=== PATIENT | male | born 1955 | race Two or more races ===

== ENCOUNTER 2017-03-18 13:06 | Emergency (ER) | payer SELFPAY ==
[2017-03-18 13:13] VITALS: BP 130/82; BMI 22.3
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
[2017-03-18] MEDS ORDERED: TORADOL 60 MG VIAL IM ONE (14:34)
[2017-03-18] MEDS ORDERED: TORADOL 60 MG VIAL ONE (14:35)
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
--- NOTE | 2017-03-18 15:35 | CT ---
Chest CT without contrast: Indication: Rib fracture. Comparison: Chest radiograph dated June 25, 2016. Technique: Helical noncontrast CT imaging of the chest was performed with multiplanar reformations. Findings: There is a small to moderate-sized right-sided pneumothorax. No significant shift of the m ediastinal contents is identified. No pleural effusion or left-sided pneumothorax is identified. Apa rt from atelectasis, the lungs are clear with, and the central airways are patent. There is a a right-sided central venous catheter, terminating within the right atrium. There is mild coronary artery atherosclerosis, without acute vascular abnormality identified. The heart is unrema rkable without pericardial effusion. No enlarged thoracic lymph nodes are identified. There is a sma ll air-fluid level within the inferior thoracic esophagus. The imaged superior abdominal contents are unremarkable. There is a.m. Mild to moderate compression deformity of the T12 vertebral body. Anteriorly, the 1st through 5th ribs are fractured with mild di splacement a nondisplaced fracture of the anterior 6th rib may be present as well. Impression: 1. Small to moderate size right pneumothorax, without evidence of tension physiology. 2. Mildly displaced right anterior 1st through 5th, as well as possible nondisplaced 6th, rib fractu res. 3. Mild to moderate T12 vertebral body compression deformity, chronicity unknown. Reported By:
[2017-03-18 16:08] LABS: BASOPHILS # (AUTO) 0.1 X10^3/uL (0.0-0.1); BASOPHILS % (AUTO) 0.5 % (0.2-1.0); EOSINOPHILS # (AUTO) 0.1 x10^3/uL (0.0-0.2); EOSINOPHILS % (AUTO) 0.6 % (0.9-2.9); HEMATOCRIT 35.2 % (42.0-54.0); HEMOGLOBIN 11.5 g/dL (13.5-18.0); LYMPHOCYTES % (AUTO) 5.2 % (21.0-51.0); MEAN CORPUSCULAR HEMOGLOBIN 29.1 pg (27.0-34.0); MEAN CORPUSCULAR HGB CONC 32.6 g/dL (33.0-35.0); MEAN CORPUSCULAR VOLUME 89.2 fL (80.0-100.0); MEAN PLATELET VOLUME 7.7 fL (7.4-11.0); MONOCYTES # (AUTO) 0.8 x10^3/uL (0.3-0.8); MONOCYTES % (AUTO) 4.1 % (0.0-13.0); NEUTROPHILS # (AUTO) 17.4 x10^3/uL (2.2-4.8); NEUTROPHILS % (AUTO) 89.6 % (42.0-75.0); PLATELET COUNT 238 X10^3/uL (150.0-450.0); RED BLOOD COUNT 3.94 X10^6/uL (4.7-6.0); RED CELL DISTRIBUTION WIDTH 14.9 % (11.6-16.5); WHITE BLOOD COUNT 19.4 X10^3/uL (3.6-10.0)
[2017-03-18 16:20] LABS: ALANINE AMINOTRANSFERASE 26 Units/L (12-78); ALKALINE PHOSPHATASE 80 Units/L (46-116); ASPARTATE AMINO TRANSFERASE 37 Units/L (15-37); BLOOD UREA NITROGEN 64 mg/dL (7-18); CALCIUM 8.9 mg/dL (8.5-10.1); CARBON DIOXIDE 26.8 mmol/L (21-32); CHLORIDE 103 mmol/L (98-107); COR NA(FOR HYPERGLY) 143 mmol/L (136-145); CREATININE 8.84 mg/dL (0.70-1.30); GLUCOSE 123 mg/dL (65-99); SODIUM 142 mmol/L (136-145); TOTAL PROTEIN 7.5 g/dL (6.4-8.2); eGFR BLACK RACES 8 (>60); eGFR NON BLACK RACES 7 (>60)
== END 2017-03-18 16:41 | disposition short-term general hospital (02) ==
LOC: ER 13:15
DX: S22.080A Wedge compression fracture of T11-T12 vertebra, initial encounter for closed fracture (principal); S42.001A Fracture of unspecified part of right clavicle, initial encounter for closed fracture; W19.XXXA Unspecified fall, initial encounter; Y92.22 Religious institution as the place of occurrence of the external cause
CPT/HCPCS: 36415; 70450; 71250; 72125; 73030; 73100; 80053; 85025; 96365; 96372; 99284; 99285; A4222; J1885

== ENCOUNTER 2017-09-20 07:26 | Day surgery (SDC) | payer MEDICAID, OTHER ==
[2017-09-20] MEDS ORDERED: D5 LR 1000 ML 1,000 ML IV ONE (07:31)
[2017-09-20] MEDS ORDERED: NS 500 ML IV 500 ML IV ONE (09:26)
[2017-09-20] MEDS ORDERED: DIPRIVAN VIAL 20 ML ONE (09:27)
[2017-09-20] MEDS ORDERED: DIPRIVAN VIAL 10 ML ONE (09:44)
[2017-09-20 10:08] VITALS: BP 140/73
== END 2017-09-20 10:12 | disposition home or self-care (01) ==
LOC: SURG1 07:26
PROVIDERS: ATTEND Internal Medicine Gastroenterology
PROC: 0DJD8ZZ Inspection of Lower Intestinal Tract, Via Natural or Artificial Opening Endoscopic (ICD-10-PCS; principal; 2017-09-20 09:30)
PROC: 0DBN8ZX Excision of Sigmoid Colon, Via Natural or Artificial Opening Endoscopic, Diagnostic (ICD-10-PCS; principal; 2017-09-20 09:30)
PROC: 0DBL8ZX Excision of Transverse Colon, Via Natural or Artificial Opening Endoscopic, Diagnostic (ICD-10-PCS; principal; 2017-09-20 09:30)
PROC: 0DBH8ZX Excision of Cecum, Via Natural or Artificial Opening Endoscopic, Diagnostic (ICD-10-PCS; principal; 2017-09-20 09:30)
DX: Z12.11 Encounter for screening for malignant neoplasm of colon (principal); K92.2 Gastrointestinal hemorrhage, unspecified; K63.5 Polyp of colon; D64.89 Other specified anemias; D12.3 Benign neoplasm of transverse colon; D12.0 Benign neoplasm of cecum; D12.5 Benign neoplasm of sigmoid colon
CPT/HCPCS: A4217; J3490; J7120

== ENCOUNTER 2017-11-12 18:46 | Emergency (ER) | payer OTHER ==
[2017-11-12 18:53] VITALS: BMI 23.4
--- NOTE | 2017-11-12 22:05 | DR.GENAD ---
HPI - PCP Primary Care Physician: nfd - Complaint/Symptoms Chief Complaint Doctors Comments: Patient presents to the ED for evaluation of acute nausea, vomiting and chills earlier today. He received his dialysis today. On dialysis for one year. Chief Complaint:: N/V SINCE YESTERDAY-YELLOW BILE. COLD-SHAKING, CHILLS AFTER DIALYSIS TODAY. FEELING DIZZY. - Source History Provided: Patient - Mode of Arrival Mode of Arrival: Ambulatory - Timing Onset of Chief Complaint: 11/11/17 PMH - PMH Past Medical History: Yes Past Medical History: Diabetes, Hypertension, Renal Disease Past Medical History Comment: DIALYSIS Past Surgical History: Yes Past Surgical History Comment: AMPUTATION OF RIGHT GREAT TOE. SHUNT FOR DIALYSIS IN RT ARM - Family History History of Family Medical Conditions: Yes Family Medical History: Hypertension - Social History Does patient currently use any type of tobacco product: No Have you used tobacco products in the last 12 months: No Type of Tobacco Use: None Does any household member use tobacco: No Alcohol Use: None Do you use any recreational Drugs:: No Lives With: Family Lives Where: Home - infectious screening Have you traveled outside the country in the last 6 months?: Yes ([place]) Details about traveling: OCTOBER 07- NOVEMBER 10 2016 Isolation: Standard ROS - Review of Systems Constitutional: No Symptoms Reported Eyes: No Symptoms Reported ENTM: No Symptoms Reported Respiratoy: No Symptoms Reported Cardiovascular: No Symptoms Reported Gastrointestinal/Abdominal: Nausea, Vomiting Genitourinary: No Symptoms Reported Neurological: No Symptoms Reported Musculoskeletal: No Symptoms Reported Integumentary: No Symptoms Reported Hematologic/Lymphatic: No Symptoms Reported Endocrine: No Symptoms Reported Psychiatric: No Symptoms Reported All Other Systems: Reviewed and Negative PE - Vital Signs Vitals: Temperature 99.0 F Pulse Rate 80 Respiratory Rate 18 Blood Pressure [Right Arm] 186/90 Blood Pressure [Left Arm] 192/91 Blood Pressure 170/83 O2 Sat by Pulse Oximetry 97 - General Limitations: No Limitations General Appearance: Alert, In No Apparent Distress - Head Head Exam: Normal Inspection, Atraumatic - Eyes Eye exam: Normal Appearance, PERRL, EOMI - ENT ENT Exam: Normal Exam External Ear Exam: Normal External Inspection TM/Canal Exam: Bilateral Normal Nose Exam: Normal Nose Exam Mouth Exam: Normal Inspection Throat Exam: Normal Inspection - Neck Neck Exam: Normal Inspection, Full ROM - Chest Chest Inspection: Symmetric Chest Wall Rise - Respiratory Respiratory Exam: Normal Lung Sounds Bilat, Accessory Muscle Use Respiratory Exam: Bilateral Clear to Auscultation - Cardiovascular Cardiovascular Exam: Regular Rate, Normal Rhythm - Abdominal Exam Abdominal Exam: Normal Inspection, Normal Bowel Sounds, Soft, Distention Abdominal Tenderness: Epigastrium - Extremities Extremities Exam: Normal Inspection, Full ROM - Back Back Exam: Normal Inspection, Full ROM - Neurologic Neurological Exam: Alert, Oriented X3, CN II-XII Intact - Psychiatric Psychiatric Exam: Normal Affect, Normal Mood - Skin Skin Exam: Warm, Dry, Intact Course - Reevaluation 1st: Improved ROR - Labs Reviewed Laboratory Results Reviewed?: Yes (Influenza negative) Result Diagrams: 11/12/17 22:15 11/12/17 22:15 Laboratory: WBC 5.0 X10^3/uL (3.6-10.0) 11/12/17 22:15 RBC 3.44 X10^6/uL (4.7-6.0) L 11/12/17 22:15 Hgb 10.3 g/dL (13.5-18.0) L 11/12/17 22:15 Hct 30.5 % (42.0-54.0) L 11/12/17 22:15 MCV 88.5 fL (80.0-100.0) 11/12/17 22:15 MCH 29.9 pg (27.0-34.0) 11/12/17 22:15 MCHC 33.8 g/dL (33.0-35.0) 11/12/17 22:15 RDW 15.0 % (11.6-16.5) 11/12/17 22:15 Plt Count 159 X10^3/uL (150.0-450.0) 11/12/17 22:15 MPV 9.3 fL (7.4-11.0) 11/12/17 22:15 Neut % 72.1 % (42.0-75.0) 11/12/17 22:15 Lymph % 17.3 % (21.0-51.0) L 11/12/17 22:15 [place] % 7.1 % (0.0-13.0) 11/12/17 22:15 Eos % 2.6 % (0.9-2.9) 11/12/17 22:15 Baso % 0.9 % (0.2-1.0) 11/12/17 22:15 Neut # 3.6 x10^3/uL (2.2-4.8) 11/12/17 22:15 Lymph # 0.9 X10^3/uL (1.3-2.9) L 11/12/17 22:15 [place] # 0.4 x10^3/uL (0.3-0.8) 11/12/17 22:15 Eos # 0.1 x10^3/uL (0.0-0.2) 11/12/17 22:15 Baso # 0.0 X10^3/uL (0.0-0.1) 11/12/17 22:15 Absolute Nucleated RBC 0.0 /100WBC 11/12/17 22:15 Sodium 137 mmol/L (136-145) 11/12/17 22:15 Corrected Sodium 137 mmol/L (136-145) 11/12/17 22:15 Potassium 4.4 mmol/L (3.5-5.1) 11/12/17 22:15 Chloride 101 mmol/L (98-107) 11/12/17 22:15 Carbon Dioxide 26.3 mmol/L (21-32) 11/12/17 22:15 BUN 45 mg/dL (7-18) H 11/12/17 22:15 Creatinine 7.63 mg/dL (0.70-1.30) H 11/12/17 22:15 Est GFR (MDRD) Af Amer 9 (>60) L 11/12/17 22:15 Est GFR (MDRD) Non-Af 8 (>60) L 11/12/17 22:15 Glucose 114 mg/dL (65-99) H 11/12/17 22:15 Calcium 7.8 mg/dL (8.5-10.1) L 11/12/17 22:15 Corrected Calcium TNP 11/12/17 22:15 Total Bilirubin 0.50 mg/dL (0.2-1.0) 11/12/17 22:15 AST 17 Units/L (15-37) 11/12/17 22:15 ALT 19 Units/L (12-78) 11/12/17 22:15 Alkaline Phosphatase 126 Units/L (46-116) H 11/12/17 22:15 Total Protein 7.1 g/dL (6.4-8.2) 11/12/17 22:15 Albumin 3.6 g/dL (3.4-5.0) 11/12/17 22:15 Globulin 3.5 g/dL (2.5-4.5) 11/12/17 22:15 Albumin/Globulin Ratio 1.0 Ratio (1.1-2.1) L 11/12/17 22:15 Specimen Type Clean catch urine 11/12/17 22:22 Urine Color Yellow (YELLOW) 11/12/17 22:22 Urine Appearance Slightly hazy (CLEAR) 11/12/17 22: Urine pH 8.0 (5.0 - 8.0) 11/12/17 22:22 Ur Specific [place] 1.010 (1.000-1.030) 11/12/17 22:22 Urine Protein 4+ (NEGATIVE) 11/12/17 22:22 Urine Glucose (UA) 2+ (NEGATIVE) 11/12/17 22: Urine Ketones Negative (NEGATIVE) 11/12/17: Urine Occult Blood 3+ (NEGATIVE) 11/12/17 22: Urine Nitrite Negative (NEGATIVE) 11/12/17 22:22 Urine Bilirubin Negative (NEGATIVE) 11/12/17 22:22 Urine Urobilinogen Normal (NORMAL) 11/12/17 22:22 Ur Leukocyte Esterase Negative (NEGATIVE) 11/12/17 22:22 Urine RBC 5-7 /HPF (NEGATIVE) 11/12/17 22:22 Urine WBC 0-1 /HPF (NEGATIVE) 11/12/17 22:22 Ur Squamous Epith Cells Few /HPF (NEGATIVE) 11/12/17 22:22 Amorphous Sediment 2+ /HPF (NEGATIVE) 11/12/17 22:22 Urine Bacteria Trace /HPF (NEGATIVE) 11/12/17 22:22 Ur Culture Indicated? No/not indicated 11/12/17 22:22 Influenza Type A (PCR) Negative (NEGATIVE) 11/13/17 00:39 Influenza Type B (PCR) Negative (NEGATIVE) 11/13/17 00:39 - XRAY XRAY Interpreted by: Radiologist (Acute Abdominal series: Moderate stool is present throughout the colon. Bowel gas pattern is otherwise nonobstructive. No free aire or pneumatosis is identified. No pathologic calcification are seen. There is no acute osseous abnormality. Impression: constipation otherwise no acute abdominal abnormality.) - Diagnosis Discharge Problem: Prerenal azotemia Constipation Qualifiers: Constipation type: slow transit constipation Qualified Code(s): K59.01 - Slow transit constipation - Discharge Plan Condition: Stable - Follow ups/Referrals Follow ups/Referrals: NFD,None [Primary Care Provider] - 3 days - Instructions
[2017-11-12 22:32] LABS: BASOPHILS % (AUTO) 0.9 % (0.2-1.0); EOSINOPHILS # (AUTO) 0.1 x10^3/uL (0.0-0.2); EOSINOPHILS % (AUTO) 2.6 % (0.9-2.9); HEMATOCRIT 30.5 % (42.0-54.0); HEMOGLOBIN 10.3 g/dL (13.5-18.0); LYMPHOCYTES # (AUTO) 0.9 X10^3/uL (1.3-2.9); LYMPHOCYTES % (AUTO) 17.3 % (21.0-51.0); MEAN CORPUSCULAR HEMOGLOBIN 29.9 pg (27.0-34.0); MEAN CORPUSCULAR HGB CONC 33.8 g/dL (33.0-35.0); MEAN CORPUSCULAR VOLUME 88.5 fL (80.0-100.0); MEAN PLATELET VOLUME 9.3 fL (7.4-11.0); MONOCYTES # (AUTO) 0.4 x10^3/uL (0.3-0.8); MONOCYTES % (AUTO) 7.1 % (0.0-13.0); NEUTROPHILS # (AUTO) 3.6 x10^3/uL (2.2-4.8); NEUTROPHILS % (AUTO) 72.1 % (42.0-75.0); PLATELET COUNT 159 X10^3/uL (150.0-450.0); RED BLOOD COUNT 3.44 X10^6/uL (4.7-6.0)
[2017-11-12 22:42] LABS: ALANINE AMINOTRANSFERASE 19 Units/L (12-78); ALBUMIN 3.6 g/dL (3.4-5.0); ALKALINE PHOSPHATASE 126 Units/L (46-116); ASPARTATE AMINO TRANSFERASE 17 Units/L (15-37); BLOOD UREA NITROGEN 45 mg/dL (7-18); CALCIUM 7.8 mg/dL (8.5-10.1); CARBON DIOXIDE 26.3 mmol/L (21-32); CHLORIDE 101 mmol/L (98-107); COR NA(FOR HYPERGLY) 137 mmol/L (136-145); CREATININE 7.63 mg/dL (0.70-1.30); SODIUM 137 mmol/L (136-145); TOTAL PROTEIN 7.1 g/dL (6.4-8.2); eGFR BLACK RACES 9 (>60); eGFR NON BLACK RACES 8 (>60)
[2017-11-12 23:01] LABS: BILIRUBIN,URINE NEGATIVE (NEGATIVE); BLOOD/HEMOGLOBIN,URINE 3+ (NEGATIVE); GLUCOSE, URINE 2+ (NEGATIVE); KETONES,URINE NEGATIVE (NEGATIVE); LEUKOCYTE ESTERASE ,URINE NEGATIVE (NEGATIVE); NITRITES,URINE NEGATIVE (NEGATIVE); PROTEIN,URINE 4+ (NEGATIVE); UROBILINOGEN,URINE NORMAL (NORMAL)
[2017-11-12 23:14] LABS: AMORPHOUS SEDIMENT,UR 2+ /HPF (NEGATIVE); APPEARANCE,URINE SLIGHTLY HAZY (CLEAR); BACTERIA,URINE TRACE /HPF (NEGATIVE); COLOR,URINE YELLOW (YELLOW); SQUAMOUS EPITHELIAL CELL,UR FEW /HPF (NEGATIVE)
--- NOTE | 2017-11-13 01:41 | RAD ---
Acute abdominal series, three views Indication: Vomiting, fever Comparison: None Findings: Heart size is normal. No focal consolidation, effusion or pneumothorax is identified. Moderate stool is present throughout the colon. Bowel gas pattern is otherwise nonobstructive. No alva e air or pneumatosis is identified. No pathologic calcifications are seen. There is no acute osseous abnormality. Impression: No acute chest process. Constipation. Otherwise, no acute abdominal abnormality. Reported By:
[2017-11-13] MEDS ORDERED: CITROMA PO ONE (02:02)
[2017-11-13] MEDS ORDERED: CITROMA ONE (02:03)
[2017-11-13 02:12] VITALS: BP 183/82
== END 2017-11-13 02:12 | disposition home or self-care (01) ==
LOC: ER 18:59
DX: R79.89 Other specified abnormal findings of blood chemistry (principal); R11.2 Nausea with vomiting, unspecified; R68.83 Chills (without fever); R42 Dizziness and giddiness; Z99.2 Dependence on renal dialysis
CPT/HCPCS: 36415; 74022; 80053; 81001; 85025; 87502; 99283